=== PATIENT | female | born 1965 ===

== ENCOUNTER 2022-07-14 12:55 | Outpatient (RCR) | payer OTHER, SELFPAY ==
--- NOTE | 2022-07-15 08:56 | PC.NURSE ---
I spoke to Susanne Mitchell to let her know we contacted her cost sharing medical plan [facility] and we were told by Alejandrina Neal 07/15/2022 on two occasions that Susanne's plan does not cover outpatient Behavioral Health PHP level of care and does not cover inpatient level of care. Patient stated she thought her plan covered PHP level of care and is going to call herself as she does not want to get a bill. PHP staff is aware.
--- NOTE | 2022-07-15 11:03 | PC.NURSE ---
I called Susanne back. She stated she called her cost sharing plan and was told they do not cover any mental health treatment including PHP. I gave Susanne the number to [facility] Financial services to help [place] get [place]. I also encouraged Susanne to start attending AA meetings for more support. Susanne stated she would like AA meeting information emailed to her. Radha emailing patient with AA meetings information that I gave to her along with [facility] information. Susanne stated she is safe. No Si or thoughts to harm herself. Patient was appreciative for the information. Stated she just went on a walk and plans on calling [facility] financial Services and [place] up on [place] and will give us a call when completed. [facility] staff is aware.
== END 2022-07-14 23:59 | disposition home or self-care (01) ==
LOC: HO.PHPA 12:55
PROVIDERS: Visit Provider Psychiatry & Neurology Psychiatry
DX: F33.2 Major depressive disorder, recurrent severe without psychotic features (principal); F41.1 Generalized anxiety disorder; F10.10 Alcohol abuse, uncomplicated
CPT/HCPCS: 90791

== ENCOUNTER 2022-09-08 12:15 | Outpatient (RCR) | payer OTHER, SELFPAY ==
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
[2022-08-18 15:13] VITALS: BP 110/60; PULSE 60; TEMP 37.4
[2022-08-18 15:14] VITALS: BMI 31.8
[2022-08-18 15:14] LABS: Amphetamine Screen Urine Not Detected (Not Detect); Barbiturates, Urine Not Detected (Not Detect); Benzodiazepines Screen Urine Not Detected (Not Detect); Cannabinoid Screen Urine Not Detected (Not Detect); Cocaine Screen Urine Not Detected (Not Detect); Fentanyl, urine Not Detected (Not Detect); Opiate Screen Urine Not Detected (Not Detect); Phencyclidine Screen Urine Not Detected (Not Detect)
--- NOTE | 2022-08-18 15:35 | PC.ADMIT ---
daniel is a 56 year old female who was referred to [facility] by her outpatient therapist d/t increased depression, anxiety, PTSD. Patient was using ETOH to deal with life stressors and its use contributed to her job loss. See intergrative Assessment for more information. Patient reports before she knew it she was starting to question her use of ETOH and the amount she was drinking. Reports she has cut down her use and not only drinks 1- 2 glasses of ETOH a week. Stated she will not drink while in the program as she wants to learn how to cope with how she is feeling in a healthier way. Stated last time roger had ETOH was on MARILOU. Stated previously she was drinking 2-3 times a week drinking 4 martinis and wine. Stated she wants to wake up with a clear head and does not want to feel hung over anymore. Stated she needs more support on reining back the drinking . When asked if she was attending any support groups like AA she stated she has been going to [facility] and [employer] [facility]. Unsure about AA at this time. Wants to explore PHP and other options while in the program. Patient given information about the [employer] Women's group online for more support. She appeared interested in this for more support. Patient identified life stresses including the of her mother, Recent move in November, increased responsibilities at work and recent loss of her job. Patient is alert and oriented x4. Calm and cooperative. Presented with depressed mood and affect. Denied SI. Gave a copy of safety plan to Vonda if needed. Medications reconciled with patient and patient's pharmacy. Patient reports she sometimes forgets to take her medications. Medication education provided.
--- NOTE | 2022-08-19 15:38 | HO.PHPIOP ---
Case opened in treatment team
--- NOTE | 2022-08-20 15:48 | HO.PHPIOP ---
A message was left with the client therapist Vale Murphy [facility] clients participation in PHP
--- NOTE | 2022-08-24 11:21 | HO.PHPPROGNO ---
Subjective Subjective Date of Service: 08/24/22 Reason For Visit: severe depression Medical Problems Affecting Mental Status: No Interim History: Less anxious, less depressed, feels mood is more stable. Finding groups helpful. Has been drinking intermittently, considering abstinence. Has job interview tomorrow, looking forward to it. Medication Compliance: Yes Side effects from medications: No Attending Groups: Yes Review of Systems Acute medical concerns: No Medical Review of Systems: unchanged Review of Systems Review of Systems Yes all other systems are reviewed and are negative Constitutional: Reports no additional constitutional complaints Mental Status Exam Mental Status Exam Narrative: NAD Patient Appearance: Well Grooomed Patient Orientation: Person, Place, Time and Situation Level of Consciousness: Appropriate and Alert Patient Behavior: Appropriate, Cooperative and Good Eye Contact Mood Description: Depressed (Less) and Anxious (Less ) Affect Description: Depressed and Anxious Patient Cognition Impaired: No Ability to Follow Directions: Excellent Speech Pattern: Clear, Appropriate and Coherent Memory Description: Intact Hallucinations: None Delusions: Not Present Thought Content: positive for Intact Depressive Symptoms: Increased Anxiety, Feelings of Worthlessness, Unhappiness and Increased Fatigue Judgement: Fair Diagnostics Vital Signs (24Hr): BMI result Body Mass Index 31.8 Assessment & Plan Assessment & Plan (1) Alcohol use disorder, moderate, dependence: Status: Acute Code(s): F10.20 - Alcohol dependence, uncomplicated Assessment and Plan: Less anxious, less depressed, feels mood is more stable. No SI, no safety concerns. Tolerating lamotrigine well, no concerns. Finding groups helpful. Feels that she is making progress from listening to others as well as processing some of her own issues. Has been drinking intermittently, considering abstinence. We discussed community support groups, such as 12 step groups, other types. Also discussed various medication options to help with cravings, including acamprosate, naltrexone, with possibility of Vivitrol. Reports that she will consider these but is not ready to try 1 at this time. (2) Post traumatic stress disorder: Status: Acute Code(s): F43.10 - Post-traumatic stress disorder, unspecified (3) Depression, major, recurrent, moderate: Status: Acute Code(s): F33.1 - Major depressive disorder, recurrent, moderate Plan 1. Continue with current [facility] plan of care. 2. Continue with lamotrigine titration schedule. 3. Continue with other medications as currently prescribed. 4. Follow-up as per protocol. Patient educated on: diagnosis, medication risk/benefits, substance abuse and therapeutic strategies Informed Consent: understands Reason for contiued partial hosp. stay Substantial Risk for: inability to function and rapid decompensation Certification I certify that partial hospital treatment is medically necessary due to the symptoms and problems resulting from the patient's mental illness and the failure to treat the patient at the partial hospital level of care would likely result in the patient requiring inpatient psychiatric care which could not be prevented at a less intensive level of care. Total time managing care of this patient today __20__ minutes. Discharge Plan Discharge Attending provider: Efraín Salgado Medications: New lamotrigine 25 mg tablet See Rx Instructions .ROUTE .COMPLEX 14 Days Qty: 42 0RF Rx Instructions: Take 25mg (1 tab) daily for 14 days. Then, take 50mg (2 tabs) daily for 14 days. fluoxetine 40 mg capsule 40 mg PO DAILY Qty: 30 0RF Rx Instructions: Take with flouxetine 20mg daily, for total daily dose 60mg. lamotrigine 100 mg tablet 100 mg PO DAILY Qty: 30 0RF Rx Instructions: After completion of lamotrigine 50mg daily, start lamotrigine 100mg daily No Action hydroxyzine HCl 25 mg Tablet 25 mg PO QID PRN (Reason: Anxiety) fluoxetine 20 mg Capsule 20 mg PO DAILY Rx Instructions: Take with 40 mg tab. Stand Alone Forms: Patient Portal Discharge page Patient Education: Lamotrigine (By mouth)
--- NOTE | 2022-09-02 10:17 | HO.PHPPROGNO ---
Subjective Subjective Date of Service: 09/02/22 Reason For Visit: severe depression Medical Problems Affecting Mental Status: No Interim History: Describes mood as good Less depressed. More insightful. Abstinent from alcohol 2 weeks. Interested in naltrexone No SI, no safety concerns Medication Compliance: Yes Side effects from medications: No Attending Groups: Yes Review of Systems Acute medical concerns: No Medical Review of Systems: unchanged Review of Systems Review of Systems Yes all other systems are reviewed and are negative Constitutional: Reports no additional constitutional complaints Mental Status Exam Mental Status Exam Narrative: NAD Patient Appearance: Well Grooomed Patient Orientation: Person, Place, Time and Situation Level of Consciousness: Appropriate and Alert Patient Behavior: Appropriate, Cooperative and Good Eye Contact Mood Description: Appropriate and Depressed (improving) Affect Description: Depressed (improving) Patient Cognition Impaired: No Ability to Follow Directions: Excellent Speech Pattern: Clear, Appropriate and Coherent Memory Description: Intact Hallucinations: None Delusions: Not Present Thought Process: Intact Thought Content: positive for Intact Depressive Symptoms: Increased Anxiety, Unhappiness and Increased Fatigue Judgement: Fair Diagnostics Vital Signs (24Hr): BMI result Body Mass Index 31.8 Assessment & Plan Assessment & Plan (1) Alcohol use disorder, moderate, dependence: Status: Acute Code(s): F10.20 - Alcohol dependence, uncomplicated Assessment and Plan: Has remain abstinent from alcohol for 2 weeks. Continues to explore relationship with alcohol, specifically addictive type behaviors, including periods of binge eating, etc. despite his insight it, able to identify behaviors while intoxicated and there consequences. Interested in starting naltrexone at this time. Reviewed indications of use, risks and benefits. May possibly trial alcoholics anonymous or online women in recovery group. Already participates in [employer] and [employer]reaters anonymous meetings. (2) Post traumatic stress disorder: Status: Acute Code(s): F43.10 - Post-traumatic stress disorder, unspecified (3) Depression, major, recurrent, moderate: Status: Acute Code(s): F33.1 - Major depressive disorder, recurrent, moderate Assessment and Plan: No SI, no safety concerns. Continues taking lamotrigine as prescribed. Interested in low to trial as a possibility. Discussed both medications in detail. Patient was agreeable to remain on lamotrigine, as she is tolerating the upper titration with no side effects. Currently takes 50 mg daily, with plan to increase to 100 mg daily after 14 days. Plan 1. Continue with current PHP plan of care. 2. Start naltrexone 50 mg daily. 3. Continue other medication as prescribed. 4. Follow-up as per protocol. Patient educated on: diagnosis, medication risk/benefits, substance abuse and therapeutic strategies Reason for contiued partial hosp. stay Substantial Risk for: inability to function and rapid decompensation Certification I certify that partial hospital treatment is medically necessary due to the symptoms and problems resulting from the patient's mental illness and the failure to treat the patient at the partial hospital level of care would likely result in the patient requiring inpatient psychiatric care which could not be prevented at a less intensive level of care. Total time managing care of this patient today 20____ minutes. Discharge Plan Discharge Attending provider: Efraín Salgado Medications: New lamotrigine 25 mg tablet See Rx Instructions .ROUTE .COMPLEX 14 Days Qty: 42 0RF Rx Instructions: Take 25mg (1 tab) daily for 14 days. Then, take 50mg (2 tabs) daily for 14 days. fluoxetine 40 mg capsule 40 mg PO DAILY Qty: 30 0RF Rx Instructions: Take with flouxetine 20mg daily, for total daily dose 60mg. lamotrigine 100 mg tablet 100 mg PO DAILY Qty: 30 0RF Rx Instructions: After completion of lamotrigine 50mg daily, start lamotrigine 100mg daily naltrexone 50 mg tablet 50 mg PO DAILY Qty: 30 0RF No Action hydroxyzine HCl 25 mg Tablet 25 mg PO QID PRN (Reason: Anxiety) fluoxetine 20 mg Capsule 20 mg PO DAILY Rx Instructions: Take with 40 mg tab. Stand Alone Forms: Patient Portal Discharge page Patient Education: Lamotrigine (By mouth)
--- NOTE | 2022-09-08 14:37 | P.PNPSP_ITS ---
Subjective Subjective Date of Service: 09/08/22 Reason For Visit: severe depression Medical Problems Affecting Mental Status: No Interim History: Describes mood as good . Affect stable. No SI, no safety concerns. Continues with abstinence from alcohol. Taking naltrexone with no complications. Finding lamotrigine helpful. Spent weekend visiting her daughter in [place]. Feels stable for discharge from [facility] at this time. Hopeful for future. Medication Compliance: Yes Side effects from medications: No Attending Groups: Yes Review of Systems Acute medical concerns: No Medical Review of Systems: unchanged Review of Systems Review of Systems Yes all other systems are reviewed and are negative Constitutional: Reports no additional constitutional complaints Mental Status Exam Mental Status Exam Narrative: NAD Patient Appearance: Well Grooomed Patient Orientation: Person, Place, Time and Situation Level of Consciousness: Appropriate and Alert Patient Behavior: Appropriate, Cooperative and Good Eye Contact Mood Description: Calm and Appropriate Affect Description: Calm and Appropriate Patient Cognition Impaired: No Ability to Follow Directions: Excellent Speech Pattern: Clear, Appropriate and Coherent Memory Description: Intact Hallucinations: None Delusions: Not Present Thought Process: Intact Thought Content: positive for Intact Judgement: Good Diagnostics Vital Signs (24Hr): BMI result Body Mass Index 31.8 Assessment & Plan Assessment & Plan (1) Depression, major, recurrent, moderate: Status: Acute Code(s): F33.1 - Major depressive disorder, recurrent, moderate Assessment and Plan: Describes mood as good . Affect stable. Finding lamotrigine helpful. Discussed remaining on medication for now, and consider change to Latuda in the future if not effective. No SI, no safety concerns. Continues with abstinence from alcohol. Taking naltrexone with no complications.Discussed [facility] if she is interested. Stated she will consider this. She did attend online women's recovery meeting, found this very helpful. Spent weekend visiting her daughter in [place]. Found this peaceful. Has been working on setting boundaries and self-care. Patient appears much improved since start of program. Reports that she has learned to apply healthy coping skills while here, and feels much more grounded. Able to identify hope for the future, much brighter outlook than several weeks ago. Feels stable for discharge from [facility] at this time. (2) Post traumatic stress disorder: Status: Acute Code(s): F43.10 - Post-traumatic stress disorder, unspecified (3) Alcohol use disorder, moderate, dependence: Status: Acute Code(s): F10.20 - Alcohol dependence, uncomplicated Plan 1. Patient stable for discharge from [facility] at this time. 2. Patient to continue with outpatient providers going forward. Patient educated on: medication risk/benefits, substance abuse and therapeutic strategies Informed Consent: understands Reason for contiued partial hosp. stay Substantial Risk for: stable for discharge Certification I certify that partial hospital treatment is medically necessary due to the symptoms and problems resulting from the patient's mental illness and the failure to treat the patient at the partial hospital level of care would likely result in the patient requiring inpatient psychiatric care which could not be prevented at a less intensive level of care. Total time managing care of this patient today __20__ minutes. Discharge Plan Discharge Attending provider: Efraín Salgado Medications: New lamotrigine 25 mg tablet See Rx Instructions .ROUTE .COMPLEX 14 Days Qty: 42 0RF Rx Instructions: Take 25mg (1 tab) daily for 14 days. Then, take 50mg (2 tabs) daily for 14 days. fluoxetine 40 mg capsule 40 mg PO DAILY Qty: 30 0RF Rx Instructions: Take with flouxetine 20mg daily, for total daily dose 60mg. lamotrigine 100 mg tablet 100 mg PO DAILY Qty: 30 0RF Rx Instructions: After completion of lamotrigine 50mg daily, start lamotrigine 100mg daily naltrexone 50 mg tablet 50 mg PO DAILY Qty: 30 0RF No Action hydroxyzine HCl 25 mg Tablet 25 mg PO QID PRN (Reason: Anxiety) fluoxetine 20 mg Capsule 20 mg PO DAILY Rx Instructions: Take with 40 mg tab. Stand Alone Forms: Patient Portal Discharge page Patient Education: Lamotrigine (By mouth), Depression (ED), Post Traumatic Stress Disorder (DC), Alcohol Use Disorder (DC)
== END 2022-09-08 23:59 | disposition home or self-care (01) ==
LOC: HO.PHPA 12:15
PROVIDERS: Visit Provider Psychiatry & Neurology Psychiatry
DX: F33.1 Major depressive disorder, recurrent, moderate (principal); F43.10 Post-traumatic stress disorder, unspecified; F10.20 Alcohol dependence, uncomplicated; Z79.899 Other long term (current) drug therapy
CPT/HCPCS: 80307; 90791; 90853